=== PATIENT | male | born 1965 | race Caucasian/White ===

== ENCOUNTER → 2017-09-25 | Outpatient (REF) ==
[~2017-09-25] MED LIST: DIOVAN; NORFLEX100 MG PO; ZOCOR
== END ==
LOC: ZLAB.WCH 17:49
DX: Z01.89 Encounter for other specified special examinations (principal)

== ENCOUNTER → 2017-10-10 | Outpatient (CLI) | payer OTHER ==
[~2017-10-10] VITALS: Ht 182.9 cm; Wt 152.0 kg
[~2017-10-10] MED LIST changes: +HYDRODIURIL50 MG PO; +MICARDIS20 MG PO
[2017-10-10 08:52] VITALS: BP 168/89; PULSE 78
[2017-10-10 11:05] VITALS: BP 139/80; BP 150/91; PULSE 70; PULSE 92
[2017-10-10 11:06] VITALS: BP 141/81; PULSE 84
[2017-10-10 11:07] VITALS: BP 134/81; PULSE 80
== END ==
LOC: COL.VAS 08:00 → COL.CARD 09:15
DX: I51.7 Cardiomegaly (principal); I10 Essential (primary) hypertension; R73.02 Impaired glucose tolerance (oral); E78.2 Mixed hyperlipidemia
CPT/HCPCS: A9502; J2785

== ENCOUNTER → 2018-07-25 | Outpatient (REF) | LOC: ZLAB.WCH 16:07 | DX: Z01.89 Encounter for other specified special examinations (principal) ==

== ENCOUNTER → 2018-11-13 | Outpatient (CLI) | payer OTHER | LOC: COL.RAD 10:43 | DX: J06.9 Acute upper respiratory infection, unspecified (principal) ==

== ENCOUNTER → 2020-04-28 | Outpatient (CLI) | payer OTHER | LOC: MHCPAIN 10:53 | DX: M47.812 Spondylosis without myelopathy or radiculopathy, cervical region (principal); M54.2 Cervicalgia; G89.29 Other chronic pain; R51 Headache | CPT/HCPCS: G0463 ==

== ENCOUNTER → 2020-05-13 | Outpatient (CLI) | payer OTHER | LOC: MHCPAIN 08:47 | DX: M47.812 Spondylosis without myelopathy or radiculopathy, cervical region (principal); M54.2 Cervicalgia ==

== ENCOUNTER → 2020-05-18 | Outpatient (CLI) | payer OTHER | LOC: MHCPAIN 10:57 | DX: M47.812 Spondylosis without myelopathy or radiculopathy, cervical region (principal); M54.2 Cervicalgia; R51 Headache; G89.29 Other chronic pain | CPT/HCPCS: G0463 ==

== ENCOUNTER → 2020-05-27 | Outpatient (CLI) | payer OTHER | LOC: MHCPAIN 09:29 | DX: M47.812 Spondylosis without myelopathy or radiculopathy, cervical region (principal); M54.2 Cervicalgia ==

== ENCOUNTER → 2020-06-02 | Outpatient (CLI) | payer OTHER | LOC: MHCPAIN 09:32 | DX: M47.812 Spondylosis without myelopathy or radiculopathy, cervical region (principal); M54.2 Cervicalgia; R51 Headache | CPT/HCPCS: G0463 ==

== ENCOUNTER → 2020-06-17 | Outpatient (CLI) | payer OTHER | LOC: MHCPAIN 08:32 | DX: M47.812 Spondylosis without myelopathy or radiculopathy, cervical region (principal); M54.2 Cervicalgia | CPT/HCPCS: J1100; J2250; J3010 ==

== ENCOUNTER → 2020-08-17 | Outpatient (CLI) | payer OTHER | LOC: MHCPAIN 09:47 | DX: M47.812 Spondylosis without myelopathy or radiculopathy, cervical region (principal); M54.2 Cervicalgia; G89.29 Other chronic pain; M54.12 Radiculopathy, cervical region | CPT/HCPCS: G0463 ==

== ENCOUNTER → 2020-12-07 | Outpatient (CLI) | payer OTHER | LOC: COL.RAD 11:29 | DX: M47.816 Spondylosis without myelopathy or radiculopathy, lumbar region (principal); Z98.1 Arthrodesis status ==

== ENCOUNTER → 2021-02-04 | Outpatient (CLI) | payer OTHER | LOC: COL.RAD 13:52 | DX: M47.22 Other spondylosis with radiculopathy, cervical region (principal); M48.02 Spinal stenosis, cervical region; Z98.1 Arthrodesis status ==

== ENCOUNTER → 2022-01-30 | Outpatient (CLI) | payer OTHER | LOC: MHCPAIN 10:52 | DX: M47.812 Spondylosis without myelopathy or radiculopathy, cervical region (principal); M54.2 Cervicalgia; G89.29 Other chronic pain | CPT/HCPCS: G0463 ==

== ENCOUNTER → 2022-03-13 | Outpatient (CLI) | payer OTHER | LOC: MHCPAIN 12:03 | DX: M47.812 Spondylosis without myelopathy or radiculopathy, cervical region (principal); M54.12 Radiculopathy, cervical region | CPT/HCPCS: G0463; J0461; J1100; Q9967 ==

== ENCOUNTER → 2022-08-01 | Outpatient (CLI) | payer OTHER | LOC: MHCPAIN 09:21 | DX: M47.892 Other spondylosis, cervical region (principal); M54.12 Radiculopathy, cervical region; G89.29 Other chronic pain | CPT/HCPCS: G0463 ==